=== PATIENT | female | born 1960 | race Caucasian/White ===

== ENCOUNTER 2019-05-01 15:04 | IRF | payer OTHER, SELFPAY ==
--- NOTE | ~2019-05-01 | XR_ITS ---
EXAMINATION: XR barium swallow modified EXAM DATE: 05/03/2019 10:23 INDICATION: Dysphagia. TECHNIQUE: Modified barium esophagram was performed by myself to administered fluoroscopy, in conjun ction with speech pathologist who administered barium in varying consistencies as per speech patholog ist documentation. This was recorded on tape. The DAP for this procedure was 0.5 Gycm2. FINDINGS: Oral stage: Adequate function. Pharyngeal phase: Adequate function. Laryngeal penetration: Trace, uncontrolled liquids, ejected. Aspiration: None. Laryngeal sensitivity: Present. IMPRESSION: Patient tolerated oral feedings in the upright position. Please refer to speech patholo gist findings and specific feeding recommendations. Reviewed, dictated and finalized at location A. IMPRESSION: Patient tolerated oral feedings in the upright position. Please r efer to speech pathologist findings and specific feeding recommendations.
--- NOTE | 2019-05-01 15:23 | ADMGEN ---
Arrived by ambulance, alert and orientated, VSS. This patient, Jo Broussard, was admitted to [facility] Room 224-01. Patient/family oriented to hospital policies and general routines including ID bracelet, bed and alarms, visiting hours, pain management, procedures, bathroom and other care routines, personal items, smoking policy, room service/diet, and visiting hours. Valuables list has been completed. Information on how to activate the Rapid Response Team has been discussed. Patient/Family are encouraged to report perceived risks to care and to ask questions if they do not understand what they are told or what they should do.
[2019-05-01 15:24] VITALS: BP 146/82; PULSE 61; RESP 18; TEMP 36.2; O2SAT 97
[2019-05-01 17:05] LABS: Glucose Point of Care 222 (65-105)
[2019-05-01] MEDS: metFORMIN HCL 500 MG TABLET 1000 MG PO (18:05)
[2019-05-01] MEDS: glipiZIDE 5 MG TABLET PO (18:05)
[2019-05-01] MEDS: APIXABAN 5 MG TABLET PO (18:06)
[2019-05-01] MEDS: ATORVASTATIN 40 MG TABLET PO (20:24)
[2019-05-01] MEDS: buPROPion HCL 75 MG TABLET PO (20:24)
[2019-05-01 20:54] LABS: Glucose Point of Care 209 (65-105)
[2019-05-01 22:00] VITALS: BP 113/55; PULSE 60; RESP 18; TEMP 36.3; O2SAT 95
[2019-05-02 05:04] LABS: Basophils Absolute Auto 0.1 K/mm3 (0.0-0.1); Basophils Percent Auto 0.6 % (0.2-1.2); Eosinophils Absolute Auto 0.3 K/mm3 (0-0.3); Eosinophils Percent Auto 3.5 % (0-4.4); Hematocrit 34.6 % (37.0-47.0); Hemoglobin 11.3 g/dL (12.0-15.0); Immature Granulocyte Absolute 0.03 K/mm3 (0.00-0.031); Immature Granulocyte Percent A 0.3 % (0-0.5); Lymphocytes Percent Auto 27.1 % (18.3-44.2); Mean Corpuscular HGB Conc 32.7 g/dl (32-36); Mean Corpuscular Hemoglobin 29.8 pg (26-34); Mean Corpuscular Volume 91.3 fl (80-100); Mean Platelet Volume 10.3 fl (7.4-10.4); Monocytes Absolute Auto 0.8 K/mm3 (0.1-0.6); Monocytes Percent Auto 8.6 % (2.6-8.5); Neutrophils Absolute Auto 5.3 K/mm3 (1.3-6.7); Neutrophils Percent Auto 59.9 % (45.5-73.1); Platelet Count Result 359 k/mm3 (150-375); Red Blood Count 3.79 M/mm3 (4.2-5.4); Red Cell Distribution Width 13.8 % (11.5-14.5); White Blood Count 8.9 K/mm3 (4.5-10.0)
[2019-05-02 05:11] LABS: Hemoglobin A1C 7.4 % (<5.7)
[2019-05-02 05:17] LABS: Blood Urea Nitrogen 18 mg/dL (7-17); Carbon Dioxide 26 mmol/L (22-30); Chloride 103 mmol/L (98-107); Cholesterol 110 mg/dL (0-200); Estimated Glomerular Filt Rate > 60; Glucose 126 mg/dL (65-105); HDL Direct 33 mg/dL; Potassium 3.7 mmol/L (3.4-5.0); Sodium 132 mmol/L (137-145); Triglycerides 98 mg/dL (<150)
[2019-05-02 05:28] LABS: LDL Cholesterol Direct 56 mg/dL
[2019-05-02 06:00] VITALS: BP 119/84; PULSE 63; RESP 18; TEMP 36.2; O2SAT 95
[2019-05-02] MEDS: glipiZIDE 5 MG TABLET PO ×2 (06:23→17:09)
[2019-05-02 06:30] LABS: Glucose Point of Care 151 (65-105)
[2019-05-02 08:00] VITALS: PULSE 63; RESP 18; O2SAT 95
[2019-05-02] MEDS: metFORMIN HCL 500 MG TABLET 1000 MG PO ×2 (09:17→17:09)
[2019-05-02] MEDS: ENALAPRIL MALEATE 10 MG TABLET 20 MG PO (09:17)
[2019-05-02] MEDS: buPROPion HCL 75 MG TABLET PO ×2 (09:17→20:04)
[2019-05-02] MEDS: NIFEdipine 30 MG TAB.ER.24 PO (09:17)
[2019-05-02] MEDS: FLUOXETINE HCL 20 MG CAP 40 MG PO (09:18)
[2019-05-02] MEDS: MULTIVITAMINS /C LUTEIN (CENTRUM SILVER) TABLET *BKC 1 TAB PO (09:18)
[2019-05-02] MEDS: APIXABAN 5 MG TABLET PO ×2 (09:18→17:09)
--- NOTE | 2019-05-02 10:00 | WPDREHABHP ---
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 The patient is a 51-year-old right-handed woman with a past medical history of hypertension, coronary artery disease, hyperlipidemia, prior myocardial infarct, obstructive sleep apnea, and type 2 diabetes mellitus who presented to a local hospital in [place] with left-sided weakness aphasia and right gaze deviation CT of the head was negative for hemorrhage. She received tPA and was transferred to [facility] for CT perfusion showed penumbra in the right hemisphere. Cerebral angiogram showed acute occlusion of the M1 segment of the right middle cerebral artery. Neurology was consulted and because of the evident large facial occlusion even post tPA the proceeded with mechanical thrombectomy. After successful thrombectomy the patient was placed on Eliquis and a statin. Post tPA CT showed a small amount of possible blood product versus contrast, but Neurology thought it is okay to start aspirin. Echo revealed ejection fraction of 55 to 65%. She was initially put on a adelia diet with nectar thickened liquids but has since been upgraded to a regular diet with thin liquids. Physical examination continues to reveal left hemiparesis, decreased gross motor control, decreased safety awareness and impaired balance. She will be discharged to us with on Eliquis Therapy was initiated at the acute care facility and the patient transferred to us from [facility] on May 01, 2019 FALLS OR SURGERIES: The patient has had major surgeries in the 100 days prior to admission. They had no falls in the past year. They had no falls with injury in the past year. 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 PAST SURGICAL HISTORY: Bladder repair, cardiac catheterization, cholecystectomy, colonoscopy, hysterectomy, sinus surgery SOCIAL HISTORY: the patient lives with her boyfriend and son in a 1 level home with 2 steps to enter. She was independent prior with no assistive device. Her by friend and son are available to us sister following rehab if needed. She reported no falls in the past year. She underwent a mechanical thrombectomy this admission. Current everyday smoker however planning to quit no alcohol or drug use. FAMILY HISTORY: Sister had aneurysm, mother with hypertension diabetes. Father with the mark Nina cancer. Maternal grandfather colon cancer. Paternal grandfather uterine/ ovarian cancer. Paternal grandfather diabetes. Maternal grand mother colon cancer. Maternal aunt breast cancer PRIOR LEVEL OF FUNCTION: Eating was INDEPENDENT Oral Care was INDEPENDENT Toileting Hygiene was INDEPENDENT Shower/Bathing was INDEPENDENT Upper Body Dressing was INDEPENDENT Lower Body Dressing was INDEPENDENT Donning/Rembert Footwear was INDEPENDENT Rolling Left and Right was INDEPENDENT Sit to Lying was INDEPENDENT Lying to Sitting was INDEPENDENT Sit to Stand was INDEPENDENT Bed to Chair Transfers was INDEPENDENT Toilet Transfers was INDEPENDENT Walking was INDEPENDENT >500 feet with NO DEVICE Wheelchair Mobility was NOT APPLICABLE PRIOR TO ADMISSION Stairs were INDEPENDENT CURRENT LEVEL OF FUNCTION: Eating was set upper clean up Oral Care was partial or moderate assistance Toileting Hygiene was partial moderate assistance Shower/Bathing was substantial or maximal assistance Upper Body Dressing was partial her moderate assistance Lower Body Dressing was substantial or maximal assistance D
[2019-05-02 12:13] LABS: Glucose Point of Care 215 (65-105)
[2019-05-02 13:56] VITALS: BMI 37.8
[2019-05-02 14:00] VITALS: BP 115/47; PULSE 63; RESP 18; TEMP 36.1; O2SAT 98
[2019-05-02 14:11] VITALS: BMI 37.8
[2019-05-02 17:07] LABS: Glucose Point of Care 107 (65-105)
[2019-05-02] MEDS: ATORVASTATIN 40 MG TABLET PO (20:05)
[2019-05-02 20:35] LABS: Glucose Point of Care 172 (65-105)
[2019-05-02 21:32] VITALS: BP 101/48; PULSE 59; RESP 16; TEMP 36.2; O2SAT 99
[2019-05-03 06:00] VITALS: BP 136/70; PULSE 62; RESP 16; TEMP 36; O2SAT 97
[2019-05-03 06:52] LABS: Glucose Point of Care 146 (65-105)
[2019-05-03] MEDS: glipiZIDE 5 MG TABLET PO ×2 (06:59→17:07)
[2019-05-03 08:00] VITALS: PULSE 62; RESP 16; O2SAT 97
[2019-05-03] MEDS: metFORMIN HCL 500 MG TABLET 1000 MG PO ×2 (08:24→17:07)
[2019-05-03] MEDS: APIXABAN 5 MG TABLET PO ×2 (08:24→17:07)
[2019-05-03] MEDS: NIFEdipine 30 MG TAB.ER.24 PO (08:25)
[2019-05-03] MEDS: buPROPion HCL 75 MG TABLET PO ×2 (08:25→20:14)
[2019-05-03] MEDS: ENALAPRIL MALEATE 10 MG TABLET 20 MG PO (08:25)
[2019-05-03] MEDS: MULTIVITAMINS /C LUTEIN (CENTRUM SILVER) TABLET *BKC 1 TAB PO (08:25)
[2019-05-03] MEDS: FLUOXETINE HCL 20 MG CAP 40 MG PO (08:25)
[2019-05-03 08:30] VITALS: TEMP 36
[2019-05-03] MEDS: ACETAMINOPHEN 325 MG TABLET 650 MG PO (08:30)
--- NOTE | 2019-05-03 10:46 | PCSTNOTE ---
Please refer to the Modified Barium Swallow Evaluation in the EMR.
--- NOTE | 2019-05-03 11:17 | WPDNEURORHBP ---
Subjective Date/time seen: 05/03/19 11:17 Interval history: this 59-year-old woman is here post a right middle cerebral artery stroke and status post thrombectomy of the occlusion of the middle cerebral artery as mentioned in my history and physical examination she did have the modified barium swallow this morning the results are pending the patient does have a left-sided weakness and making progress there are no neurological new symptoms particularly denies any headache nausea vomiting chest pain shortness of breath. Review of Systems Review of Systems: All systems reviewed & are unremarkable except as noted in HPI and below Functional Status Ambulation Ability Ability to Ambulate 10 Feet: Minimum Assistance X 1 Ability to Ambulate 50 Feet With 2 Turns: Minimum Assistance X 1 Ambulation Assistive Devices: Walker, Wheeled Exam Const: General: comfortable and no acute distress HENMT: General nose exam: Normal nares present Mouth: Yes moist mucous membranes Eyes: General: appearance normal, both eyes and all related structures Neck: Neck: supple and no JVD Resp: Effort & Inspection: normal respiratory effort Auscultation: clear to auscultation bilaterally Cardio: Rate: regular rate Rhythm: regular rhythm GI: GI Palp: Yes Soft to palpation Auscultation: normal bowel sounds Skin: General skin exam: normal color and no rashes or lesions noted Neuro: Other: Patient does have a mild dysarthria med modified barium swallow spending moderately severe left-sided hemiparesis needing assistance all the activities of daily living no regression no new signs Extrem: General: normal to inspection Objective Data Vital Signs Vital Signs: Vital Signs - 24 hr 05/02/19 14:00 05/02/19 21:32 05/03/19 06:00 Temperature 36.1 C L 36.2 C L 36.0 C L Pulse Rate 63 59 L 62 Respiratory Rate 18 16 16 Blood Pressure 115/47 L 101/48 L 136/70 Pulse Oximetry 98 99 97 05/03/19 08:00 05/03/19 08:30 Temperature 36.0 C L Pulse Rate 62 Respiratory Rate 16 Blood Pressure Pulse Oximetry 97 Intake/Output Intake/Output: Intake & Output 04/30/19 05/01/19 05/02/19 05/03/19 23:59 23:59 23:59 23:59 Intake Total 120 760 120 Balance 120 760 120 Meds/Results Medications: Active Medications Generic Name Dose Route Start Last Admin Trade Name Freq PRN Reason Stop Dose Admin Acetaminophen 650 mg 05/01/19 16:11 05/03/19 08:30 Tylenol Tablet PO 650 mg Q4H PRN Administration Pain (Scale Score 1-3) Apixaban 5 mg 05/01/19 17:00 05/03/19 08:24 Eliquis PO 5 mg BID ARUN Administration Atorvastatin Calcium 40 mg 05/01/19 21:00 05/02/19 20:05 Lipitor PO 40 mg HS ARUN Administration Bupropion HCl 75 mg 05/01/19 21:00 05/03/19 08:25 Wellbutrin PO 75 mg Q12HR ARUN Administration Dextrose 12.5 gm 05/01/19 18:10 Dextrose 50% Syringe IV PUSH PRN PRN Hypoglycemia Protocol Enalapril Maleate 20 mg 05/02/19 09:00 05/03/19 08:25 Vasotec PO 20 mg QAM ARUN Administration Fluoxetine HCl 40 mg 05/02/19 09:00 05/03/19 08:25 Prozac PO 40 mg DAILY ARUN Administration Glipizide 5 mg 05/01/19 16:30 05/03/19 06:59 Glucotrol PO 5 mg BIDAC ARUN Administration Glucagon 1 mg 05/01/19 18:10 Glucagon For Inj IM PRN PRN Hypoglycemia Protocol Glucose 15 gm 05/01/19 18:10 Glutose 15 PO PRN PRN Hypoglycemia Protocol Dextrose 1,000 mls @ 100 mls/hr 05/01/19 18:10 Dextrose 5% 1,000 Ml IVPB PRN PRN Hypoglycemia Protocol Metformin HCl 1,000 mg 05/01/19 17:00 05/03/19 08:24 Glucophage PO 1,000 mg BIDWM ARUN Administration Multivitamins/Minerals 1 tab 05/02/19 09:00 05/03/19 08:25 Centrum Silver PO 1 tab QAM ARUN Administration Nifedipine 30 mg 05/02/19 09:00 05/03/19 08:25 Procardia Xl PO 30 mg DAILY ARUN Administration Sitagliptin Phosphate 100 mg 05/02/19
[2019-05-03 11:39] LABS: Glucose Point of Care 162 (65-105)
[2019-05-03 14:00] VITALS: BP 142/56; PULSE 577; RESP 18; TEMP 36; O2SAT 96
--- NOTE | 2019-05-03 16:47 | RPD ---
INDIVIDUALIZED PLAN OF CARE FOR Jo Broussard Brief Synthesis of Pre-Admission Screen, Post-Admission Evaluation and Therapy Evaluations: The patient presents to rehab with an acute ischemic right MCA stroke with penumbra right hemisphere. Comorbidities include status post tPA administration, status post thrombectomy, hypertension, dysphagia, diabetes mellitus with hyperglycemia, coronary artery disease, depression, sleep apnea, and left hemiparesis. Deficits include:ADLs, Balance, Endurance, Family Training/Education, Mobility, Pain Management, ROM, Safety, Strength, Swallowing, and Transfers Certified Surgical Technologist/Case Management for: Discharge Planning and Patient/Family Counseling Physical Therapy: 5 days per week for 90 minutes. Treatments may include: Therapeutic Exercise, Gait Training, Neuromuscular Re-education, Transfer Training, Community Reintegration, Bed Mobility, Patient/Family Education, Wheelchair Mobility Group Therapy/Concurrent Therapy Rationales: -Improve attention span during functional activities in a distracted environment. -Enhance problem solving and/or adequate judgment skills during functional activities in a distracted environment. -Promote increased safety awareness in a distracted environment to reduce fall risk with functional tasks, transfers, and ambulation to allow a more safe, self-sufficient return to the home environment. -Improve dynamic balance skills to promote safety and independence with functional activities in a distracted environment for maximum gain. Occupational Therapy: 5 days per week for 90 minutes. Treatments may include: Therapeutic Exercise, Therapeutic Activity, Cognitive Training, Self-Care Transfer Training, Community Reintegration, Home Management, Patient/Family Education, Wheelchair Mobility Training, Energy Conservation Training Group Therapy/Concurrent Therapy Rationales: -Allow therapist to observe and teach generalization and carry-over of skills learned in individual therapy. -Enhance problem solving and sequencing skills during therapeutic activities in a distracted environment. -Promote increased safety awareness in a realistic setting to reduce fall risk with functional tasks due to visual and verbal distractions. -Increase functional level with ADLs, ADL transfers and use of adaptive equipment through therapeutic activities with others while promoting safety to allow a more safe, self-sufficient return home. Medical Prognosis: Good Anticipated Length of Stay: 10 days Rehab Goals: Eating Goal: 06-Independent Oral Hygiene Goal: 06-Independent Toileting Hygiene Goal: 06-Independent Shower/Bathe Self Goal: 04-Supervision or Touching Assistance Upper Body Dressing Goal: 06-Independent Lower Body Dressing Goal: 06-Independent Putting On/Taking Off Footwear Goal: 06-Independent Rolling Left and Right Goal: 06-Independent Sit to Lying Goal: 06-Independent Lying to Sitting on Side of Bed Goal: 06-Independent Sit to Stand Goal: 06-Independent Chair/Vik-gi-Fnard Transfer Goal: 06-Independent Toilet Transfer Goal: 06-Independent Car Transfer Goal: 06-Independent Walk 10' Goal: 06-Independent Walk 50' with Two Turns Goal: 06-Independent Walk 150' Goal: 06-Independent Walk 10' on Uneven Surface Goal: 06-Independent 1 Step (Curb) Goal: 06-Independent 4 Steps Goal: 06-Independent 12 Steps Goal Score: 06-Independent Picking Up Object Goal: 06-Independent Wheel 50' with Two Turns Score: Wheel 150' Goal: Anticipated discharge destination: Home
[2019-05-03 16:58] LABS: Glucose Point of Care 128 (65-105)
[2019-05-03] MEDS: ATORVASTATIN 40 MG TABLET PO (20:15)
[2019-05-03 20:53] LABS: Glucose Point of Care 95 (65-105)
[2019-05-03 22:00] VITALS: BP 107/50; PULSE 58; RESP 18; TEMP 36.6; O2SAT 95
[2019-05-04 06:00] VITALS: BP 134/69; PULSE 82; RESP 20; TEMP 36.5; O2SAT 100
[2019-05-04] MEDS: glipiZIDE 5 MG TABLET PO (06:51)
[2019-05-04 07:09] LABS: Glucose Point of Care 160 (65-105)
[2019-05-04 10:45] VITALS: BP 93/71; PULSE 97
[2019-05-04] MEDS: FLUOXETINE HCL 20 MG CAP 40 MG PO (10:49)
[2019-05-04] MEDS: APIXABAN 5 MG TABLET PO ×2 (10:49→21:07)
[2019-05-04] MEDS: MULTIVITAMINS /C LUTEIN (CENTRUM SILVER) TABLET *BKC 1 TAB PO (10:49)
[2019-05-04] MEDS: buPROPion HCL 75 MG TABLET PO ×2 (10:50→20:27)
[2019-05-04] MEDS: metFORMIN HCL 500 MG TABLET 1000 MG PO (10:50)
[2019-05-04 10:57] VITALS: BP 102/61; PULSE 66
[2019-05-04 12:05] LABS: Glucose Point of Care 163 (65-105)
--- NOTE | 2019-05-04 12:16 | WPDNEURORHBP ---
Subjective Date/time seen: 05/04/19 12:16 Interval history: this is a 59-year-old woman is here after having had tPA followed by right middle cerebral artery focal occlusion by thrombectomy with the left-sided hemiparesis she is doing fairly well quite motivated and working with therapy except complaining of fatigue and tiredness which is not unusual in the stroke patient's Patient denies any headache nausea vomiting chest pain shortness of breath fever chills or sore throat Review of Systems Review of Systems: All systems reviewed & are unremarkable except as noted in HPI and below Functional Status Ambulation Ability Ability to Ambulate 10 Feet: Contact Guard Ability to Ambulate 50 Feet With 2 Turns: Contact Guard Ability to Ambulate 150 Feet: Contact Guard Ambulation Assistive Devices: Walker, Wheeled Exam Const: General: comfortable and no acute distress HENMT: General nose exam: Normal nares present Mouth: Yes moist mucous membranes Eyes: General: appearance normal, both eyes and all related structures Neck: Neck: supple and no JVD Resp: Effort & Inspection: normal respiratory effort Auscultation: clear to auscultation bilaterally Cardio: Rate: regular rate Rhythm: regular rhythm GI: GI Palp: Yes Soft to palpation Auscultation: normal bowel sounds Skin: General skin exam: normal color and no rashes or lesions noted Neuro: Other: patient is awake alert double oriented times person person has normal speech language functions left-sided facial weakness left-sided hemiparesis needing assistance all the activities of daily living Extrem: General: normal to inspection Psych: Mental Status: mental status grossly normal Objective Data Vital Signs Vital Signs: Vital Signs - 24 hr 05/03/19 14:00 05/03/19 22:00 05/04/19 06:00 Temperature 36.0 C L 36.6 C 36.5 C Pulse Rate 577 H 58 L 82 Respiratory Rate 18 18 20 Blood Pressure 142/56 H 107/50 L 134/69 Pulse Oximetry 96 95 100 05/04/19 10:45 05/04/19 10:57 Temperature Pulse Rate 97 66 Respiratory Rate Blood Pressure 93/71 L 102/61 Pulse Oximetry Intake/Output Intake/Output: Intake & Output 05/01/19 05/02/19 05/03/19 05/04/19 23:59 23:59 23:59 23:59 Intake Total 120 760 360 120 Balance 120 760 360 120 Meds/Results Medications: Active Medications Generic Name Dose Route Start Last Admin Trade Name Freq PRN Reason Stop Dose Admin Acetaminophen 650 mg 05/01/19 16:11 05/03/19 08:30 Tylenol Tablet PO 650 mg Q4H PRN Administration Pain (Scale Score 1-3) Apixaban 5 mg 05/01/19 17:00 05/04/19 10:49 Eliquis PO 5 mg BID ARUN Administration Atorvastatin Calcium 40 mg 05/01/19 21:00 05/03/19 20:15 Lipitor PO 40 mg HS ARUN Administration Bupropion HCl 75 mg 05/01/19 21:00 05/04/19 10:50 Wellbutrin PO 75 mg Q12HR ARUN Administration Dextrose 12.5 gm 05/01/19 18:10 Dextrose 50% Syringe IV PUSH PRN PRN Hypoglycemia Protocol Enalapril Maleate 20 mg 05/02/19 09:00 05/04/19 11:05 Vasotec PO Not Given QAM ARUN Fluoxetine HCl 40 mg 05/02/19 09:00 05/04/19 10:49 Prozac PO 40 mg DAILY ARUN Administration Glipizide 5 mg 05/01/19 16:30 05/04/19 06:51 Glucotrol PO 5 mg BIDAC ARUN Administration Glucagon 1 mg 05/01/19 18:10 Glucagon For Inj IM PRN PRN Hypoglycemia Protocol Glucose 15 gm 05/01/19 18:10 Glutose 15 PO PRN PRN Hypoglycemia Protocol Dextrose 1,000 mls @ 100 mls/hr 05/01/19 18:10 Dextrose 5% 1,000 Ml IVPB PRN PRN Hypoglycemia Protocol Metformin HCl 1,000 mg 05/01/19 17:00 05/04/19 10:50 Glucophage PO 1,000 mg BIDWM ARUN Administration Multivitamins/Minerals 1 tab 05/02/19 09:00 05/04/19 10:49 Centrum Silver PO 1 tab QAM ARUN Administration Nifedipine 30 mg 05/02/19 09:00 05/04/19 11:05 Procardia Xl PO Not Given DAILY [facility] Sitaglipti
[2019-05-04 14:00] VITALS: BP 113/43; PULSE 60; RESP 18; TEMP 36.7; O2SAT 97
[2019-05-04 16:37] LABS: Glucose Point of Care 95 (65-105)
[2019-05-04] MEDS: ATORVASTATIN 40 MG TABLET PO (20:26)
--- NOTE | 2019-05-04 21:07 | PC.NURSE ---
Held glypizide and glucophage at supper, not eating well, blood sugar 94, Dr. Cris anton.
[2019-05-04 22:00] VITALS: BP 112/64; PULSE 59; RESP 20; TEMP 36.7; O2SAT 92
[2019-05-04 22:25] LABS: Glucose Point of Care 111 (65-105)
[2019-05-05 06:00] VITALS: BP 122/64; PULSE 64; RESP 20; TEMP 36.5; O2SAT 93
[2019-05-05] MEDS: glipiZIDE 5 MG TABLET PO ×2 (06:24→17:11)
[2019-05-05 06:31] LABS: Glucose Point of Care 121 (65-105)
[2019-05-05 08:50] VITALS: BP 129/70; PULSE 69
[2019-05-05] MEDS: metFORMIN HCL 500 MG TABLET 1000 MG PO ×2 (08:57→17:12)
[2019-05-05] MEDS: buPROPion HCL 75 MG TABLET PO ×2 (08:57→20:47)
[2019-05-05] MEDS: APIXABAN 5 MG TABLET PO ×2 (08:57→17:11)
[2019-05-05] MEDS: NIFEdipine 30 MG TAB.ER.24 PO (08:57)
[2019-05-05] MEDS: MULTIVITAMINS /C LUTEIN (CENTRUM SILVER) TABLET *BKC 1 TAB PO (08:57)
[2019-05-05] MEDS: ENALAPRIL MALEATE 10 MG TABLET 20 MG PO (08:57)
[2019-05-05] MEDS: FLUOXETINE HCL 20 MG CAP 40 MG PO (08:57)
[2019-05-05 12:09] LABS: Glucose Point of Care 144 (65-105)
[2019-05-05 14:00] VITALS: BP 112/59; PULSE 60; RESP 18; TEMP 35.6; O2SAT 96
--- NOTE | 2019-05-05 15:34 | WPDNEURORHBP ---
Subjective Date/time seen: 05/05/19 15:34 Interval history: this is a 59-year-old woman who is here after having had stroke which has left her with left-sided hemiparesis from which she is improving she does not have any new complaints referring to central nervous system likewise she does not have any headache nausea vomiting chest pain shortness of breath fever chills or sore throat Review of Systems Review of Systems: All systems reviewed & are unremarkable except as noted in HPI and below Functional Status Ambulation Ability Ability to Ambulate 10 Feet: Contact Guard Ability to Ambulate 50 Feet With 2 Turns: Contact Guard Ability to Ambulate 150 Feet: Contact Guard Ambulation Assistive Devices: Walker, Wheeled Exam Const: General: comfortable and no acute distress HENMT: General nose exam: Normal nares present Mouth: Yes moist mucous membranes Eyes: General: appearance normal, both eyes and all related structures Neck: Neck: supple and no JVD Resp: Effort & Inspection: normal respiratory effort Auscultation: clear to auscultation bilaterally Cardio: Rate: regular rate Rhythm: regular rhythm GI: GI Palp: Yes Soft to palpation Auscultation: normal bowel sounds Skin: General skin exam: normal color and no rashes or lesions noted Neuro: Other: patient is awake alert oriented times person person has a normal speech infection left-sided facial weakness and left-sided hemiparesis for which she is improving and doing much better Extrem: General: normal to inspection Psych: Mental Status: mental status grossly normal Objective Data Vital Signs Vital Signs: Vital Signs - 24 hr 05/04/19 22:00 05/05/19 06:00 05/05/19 08:50 Temperature 36.7 C 36.5 C Pulse Rate 59 L 64 69 Respiratory Rate 20 20 Blood Pressure 112/64 122/64 129/70 Pulse Oximetry 92 93 Intake/Output Intake/Output: Intake & Output 05/02/19 05/03/19 05/04/19 05/05/19 23:59 23:59 23:59 23:59 Intake Total 760 360 360 480 Balance 760 360 360 480 Meds/Results Medications: Active Medications Generic Name Dose Route Start Last Admin Trade Name Freq PRN Reason Stop Dose Admin Acetaminophen 650 mg 05/01/19 16:11 05/03/19 08:30 Tylenol Tablet PO 650 mg Q4H PRN Administration Pain (Scale Score 1-3) Apixaban 5 mg 05/01/19 17:00 05/05/19 08:57 Eliquis PO 5 mg BID ARUN Administration Atorvastatin Calcium 40 mg 05/01/19 21:00 05/04/19 20:26 Lipitor PO 40 mg HS ARUN Administration Bupropion HCl 75 mg 05/01/19 21:00 05/05/19 08:57 Wellbutrin PO 75 mg Q12HR ARUN Administration Dextrose 12.5 gm 05/01/19 18:10 Dextrose 50% Syringe IV PUSH PRN PRN Hypoglycemia Protocol Enalapril Maleate 20 mg 05/02/19 09:00 05/05/19 08:57 Vasotec PO 20 mg QAM ARUN Administration Fluoxetine HCl 40 mg 05/02/19 09:00 05/05/19 08:57 Prozac PO 40 mg DAILY ARUN Administration Glipizide 5 mg 05/01/19 16:30 05/05/19 06:24 Glucotrol PO 5 mg BIDAC ARUN Administration Glucagon 1 mg 05/01/19 18:10 Glucagon For Inj IM PRN PRN Hypoglycemia Protocol Glucose 15 gm 05/01/19 18:10 Glutose 15 PO PRN PRN Hypoglycemia Protocol Dextrose 1,000 mls @ 100 mls/hr 05/01/19 18:10 Dextrose 5% 1,000 Ml IVPB PRN PRN Hypoglycemia Protocol Metformin HCl 1,000 mg 05/01/19 17:00 05/05/19 08:57 Glucophage PO 1,000 mg BIDWM ARUN Administration Multivitamins/Minerals 1 tab 05/02/19 09:00 05/05/19 08:57 Centrum Silver PO 1 tab QAM ARUN Administration Nifedipine 30 mg 05/02/19 09:00 05/05/19 08:57 Procardia Xl PO 30 mg DAILY ARUN Administration Sitagliptin Phosphate 100 mg 05/02/19 08:00 05/05/19 08:57 Januvia PO 100 mg DAILY@0800 ARUN Administration Radiology Results: ITS Impressions Modified Barium Swallow 05/03/19 10:46 IMPRESSION: Patient tolerated oral feedings in the
[2019-05-05 17:13] LABS: Glucose Point of Care 115 (65-105)
[2019-05-05] MEDS: LOPERAMIDE HCL 2 MG CAPSULE PO (18:04)
[2019-05-05] MEDS: ATORVASTATIN 40 MG TABLET PO (20:47)
[2019-05-05 21:12] LABS: Glucose Point of Care 98 (65-105)
[2019-05-05 22:00] VITALS: BP 108/55; PULSE 54; RESP 18; TEMP 35.9; O2SAT 98
[2019-05-06] MEDS: glipiZIDE 5 MG TABLET PO ×2 (05:49→17:21)
[2019-05-06 06:00] VITALS: BP 124/42; PULSE 60; RESP 18; TEMP 35.8; O2SAT 98
[2019-05-06 06:57] LABS: Glucose Point of Care 105 (65-105)
[2019-05-06] MEDS: ENALAPRIL MALEATE 10 MG TABLET 20 MG PO (08:54)
[2019-05-06] MEDS: buPROPion HCL 75 MG TABLET PO ×2 (08:54→20:36)
[2019-05-06] MEDS: metFORMIN HCL 500 MG TABLET 1000 MG PO ×2 (08:54→17:21)
[2019-05-06] MEDS: APIXABAN 5 MG TABLET PO ×2 (08:54→17:21)
[2019-05-06] MEDS: FLUOXETINE HCL 20 MG CAP 40 MG PO (08:55)
[2019-05-06] MEDS: NIFEdipine 30 MG TAB.ER.24 PO (08:55)
[2019-05-06] MEDS: MULTIVITAMINS /C LUTEIN (CENTRUM SILVER) TABLET *BKC 1 TAB PO (08:55)
[2019-05-06 11:50] LABS: Glucose Point of Care 100 (65-105)
[2019-05-06 14:00] VITALS: BP 112/52; PULSE 63; RESP 18; TEMP 35.5; O2SAT 99
--- NOTE | 2019-05-06 15:46 | WPDNEURORHBP ---
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 from which she is improving fairly well denies any headache nausea vomiting chest pain or shortness of breath fever chills or sore throat Review of Systems Review of Systems: All systems reviewed & are unremarkable except as noted in HPI and below Functional Status Ambulation Ability Ability to Ambulate 10 Feet: Standby Assistance Ability to Ambulate 50 Feet With 2 Turns: Standby Assistance Ability to Ambulate 150 Feet: Contact Guard Ambulation Assistive Devices: Walker, Wheeled Exam Const: General: comfortable and no acute distress HENMT: General nose exam: Normal nares present Mouth: Yes moist mucous membranes Eyes: General: appearance normal, both eyes and all related structures Neck: Neck: supple and no JVD Resp: Effort & Inspection: normal respiratory effort Auscultation: clear to auscultation bilaterally Cardio: Rate: regular rate Rhythm: regular rhythm GI: GI Palp: Yes Soft to palpation Auscultation: normal bowel sounds Skin: General skin exam: normal color and no rashes or lesions noted Neuro: Other: this is a 59-year-old woman who is recuperating here after having had a stroke with left-sided hemiparesis she is doing fairly well and improving overall and engage in therapy and getting better Extrem: General: normal to inspection Psych: Mental Status: mental status grossly normal Objective Data Vital Signs Vital Signs: Vital Signs - 24 hr 05/05/19 22:00 05/06/19 06:00 05/06/19 14:00 Temperature 35.9 C L 35.8 C L 35.5 C L Pulse Rate 54 L 60 63 Respiratory Rate 18 18 18 Blood Pressure 108/55 L 124/42 L 112/52 L Pulse Oximetry 98 98 99 Intake/Output Intake/Output: Intake & Output 05/03/19 05/04/19 05/05/19 05/06/19 23:59 23:59 23:59 23:59 Intake Total 360 360 720 480 Balance 360 360 720 480 Meds/Results Medications: Active Medications Generic Name Dose Route Start Last Admin Trade Name Freq PRN Reason Stop Dose Admin Acetaminophen 650 mg 05/01/19 16:11 05/03/19 08:30 Tylenol Tablet PO 650 mg Q4H PRN Administration Pain (Scale Score 1-3) Apixaban 5 mg 05/01/19 17:00 05/06/19 08:54 Eliquis PO 5 mg BID ARUN Administration Atorvastatin Calcium 40 mg 05/01/19 21:00 05/05/19 20:47 Lipitor PO 40 mg HS ARUN Administration Bupropion HCl 75 mg 05/01/19 21:00 05/06/19 08:54 Wellbutrin PO 75 mg Q12HR ARUN Administration Dextrose 12.5 gm 05/01/19 18:10 Dextrose 50% Syringe IV PUSH PRN PRN Hypoglycemia Protocol Enalapril Maleate 20 mg 05/02/19 09:00 05/06/19 08:54 Vasotec PO 20 mg QAM ARUN Administration Fluoxetine HCl 40 mg 05/02/19 09:00 05/06/19 08:55 Prozac PO 40 mg DAILY ARUN Administration Glipizide 5 mg 05/01/19 16:30 05/06/19 05:49 Glucotrol PO 5 mg BIDAC ARUN Administration Glucagon 1 mg 05/01/19 18:10 Glucagon For Inj IM PRN PRN Hypoglycemia Protocol Glucose 15 gm 05/01/19 18:10 Glutose 15 PO PRN PRN Hypoglycemia Protocol Dextrose 1,000 mls @ 100 mls/hr 05/01/19 18:10 Dextrose 5% 1,000 Ml IVPB PRN PRN Hypoglycemia Protocol Loperamide HCl 2 mg 05/05/19 16:58 05/05/19 18:04 Loperamide Hcl PO 2 mg PRN PRN Administration Diarrhea Metformin HCl 1,000 mg 05/01/19 17:00 05/06/19 08:54 Glucophage PO 1,000 mg BIDWM ARUN Administration Multivitamins/Minerals 1 tab 05/02/19 09:00 05/06/19 08:55 Centrum Silver PO 1 tab QAM ARUN Administration Nifedipine 30 mg 05/02/19 09:00 05/06/19 08:55 Procardia Xl PO 30 mg DAILY ARUN Administration Sitagliptin Phosphate 100 mg 05/02/19 08:00 05/06/19 08:54 Januvia PO 100 mg DAILY@0800 [facility] Administratio
[2019-05-06 16:58] LABS: Glucose Point of Care 111 (65-105)
[2019-05-06] MEDS: ATORVASTATIN 40 MG TABLET PO (20:36)
[2019-05-06 20:58] LABS: Glucose Point of Care 97 (65-105)
[2019-05-06 21:21] VITALS: BP 110/60; PULSE 60; RESP 16; TEMP 36.3; O2SAT 97
[2019-05-07 06:00] VITALS: BP 124/59; PULSE 64; RESP 16; TEMP 36.2; O2SAT 98
[2019-05-07] MEDS: glipiZIDE 5 MG TABLET PO ×2 (06:54→17:37)
[2019-05-07 07:02] LABS: Glucose Point of Care 68 (65-105)
[2019-05-07 09:05] VITALS: BP 120/58; PULSE 69
[2019-05-07] MEDS: ENALAPRIL MALEATE 10 MG TABLET 20 MG PO (09:06)
[2019-05-07] MEDS: metFORMIN HCL 500 MG TABLET 1000 MG PO ×2 (09:06→17:37)
[2019-05-07] MEDS: APIXABAN 5 MG TABLET PO ×2 (09:07→17:37)
[2019-05-07] MEDS: MULTIVITAMINS /C LUTEIN (CENTRUM SILVER) TABLET *BKC 1 TAB PO (09:07)
[2019-05-07] MEDS: FLUOXETINE HCL 20 MG CAP 40 MG PO (09:07)
[2019-05-07] MEDS: buPROPion HCL 75 MG TABLET PO ×2 (09:07→20:22)
[2019-05-07] MEDS: NIFEdipine 30 MG TAB.ER.24 PO (09:08)
--- NOTE | 2019-05-07 11:38 | WPDNEURORHBP ---
Subjective Date/time seen: left cassandra paretic and [id number]/23/20 11:38 Functional Status Ambulation Ability Ability to Ambulate 10 Feet: Standby Assistance Ability to Ambulate 50 Feet With 2 Turns: Standby Assistance Ability to Ambulate 150 Feet: Standby Assistance Ambulation Assistive Devices: Walker, Wheeled Exam Const: General: no acute distress Eyes: General: appearance normal, both eyes and all related structures Alignment and Position: alignment normal Eyelids: eyelids normal Sclera: sclerae normal Cornea: corneas normal Pupils: Equal, round and reactive pupils present EOM: EOMs intact bilaterally Direct Ophthalmoscopy: normal light reflex Neck: Neck: full ROM and no lymphadenopathy Resp: Effort & Inspection: normal respiratory effort and able to speak in complete sentences Auscultation: clear to auscultation bilaterally Cardio: Rate: regular rate Rhythm: regular rhythm GI: Auscultation: normal bowel sounds Skin: General skin exam: no rashes or lesions noted Neuro: General: patient oriented x3 and moves all extremities Cranial nerves: Yes Equal, round and reactive pupils present, Yes Nystagmus not present, Yes Midline tongue present, Yes Symmetric palate elevation present, Yes Normal hearing present, Yes Ability to bilaterally rotate head present and Yes Ability to bilaterally elevate shoulders present Speech: normal speech Gait exam (Neuro): Other gait observations present (left hemiparetic) Sensory Exam: Sensory deficit (Neuro) (distally) Deep tendon reflexes (DTR's): Right triceps reflex intensity grade: 1+, Left triceps reflex intensity grade: 2+, Rt Biceps (C5, C6): 1+, Left biceps reflex intensity grade: 2+, Right brachioradialis reflex intensity grade: 1+, Left brachioradialis reflex intensity grade: 2+, Right patellar reflex intensity grade: 1+, Left patellar reflex intensity grade: 2+ and Left ankle reflex intensity grade: 2+ Plantar Reflex Responses: downgoing: right and upgoing (positive Babinski): left Psych: Appearance: grossly normal Objective Data Vital Signs Vital Signs: Vital Signs - 24 hr 05/06/19 14:00 05/06/19 21:21 05/07/19 06:00 Temperature 35.5 C L 36.3 C L 36.2 C L Pulse Rate 63 60 64 Respiratory Rate 18 16 16 Blood Pressure 112/52 L 110/60 124/59 L Pulse Oximetry 99 97 98 05/07/19 09:05 Temperature Pulse Rate 69 Respiratory Rate Blood Pressure 120/58 L Pulse Oximetry Intake/Output Intake/Output: Intake & Output 05/04/19 05/05/19 05/06/19 05/07/19 23:59 23:59 23:59 23:59 Intake Total 360 720 840 Balance 360 720 840 Meds/Results Medications: Active Medications Generic Name Dose Route Start Last Admin Trade Name Freq PRN Reason Stop Dose Admin Acetaminophen 650 mg 05/01/19 16:11 05/03/19 08:30 Tylenol Tablet PO 650 mg Q4H PRN Administration Pain (Scale Score 1-3) Apixaban 5 mg 05/01/19 17:00 05/07/19 09:07 Eliquis PO 5 mg BID ARUN Administration Atorvastatin Calcium 40 mg 05/01/19 21:00 05/06/19 20:36 Lipitor PO 40 mg HS ARUN Administration Bupropion HCl 75 mg 05/01/19 21:00 05/07/19 09:07 Wellbutrin PO 75 mg Q12HR ARUN Administration Dextrose 12.5 gm 05/01/19 18:10 Dextrose 50% Syringe IV PUSH PRN PRN Hypoglycemia Protocol Enalapril Maleate 20 mg 05/02/19 09:00 05/07/19 09:06 Vasotec PO 20 mg QAM ARUN Administration Fluoxetine HCl 40 mg 05/02/19 09:00 05/07/19 09:07 Prozac PO 40 mg DAILY ARUN Administration Glipizide 5 mg 05/01/19 16:30 05/07/19 06:54 Glucotrol PO 5 mg BIDAC ARUN Administration Glucagon 1 mg 05/01/19 18:10 Glucagon For Inj IM PRN PRN Hypoglycemia Protocol Glucose 15 gm 05/01/19 18:10 Glutose 15 PO PRN PRN Hypoglycemia Protocol Dextrose 1,000 mls @ 100 mls/hr 05/01/19 18:10 Dextrose 5% 1,000 Ml IVPB PRN PRN Hypoglycemia Protocol Loperamide HCl 2 mg 04/15
--- NOTE | 2019-05-07 12:06 | PCDIET ---
Nutrition Follow-Up Complete: Nutrition Diagnosis: Decreased saturated fat/cholesterol needs related to cardiovascular disease as evidenced by CVA. Nutrition Goal: Patient to consume 75% of meals or greater Goal not met. Average intake since last review is ~65% of recorded meals. Diet is diabetic which is appropriate until intakes improve; at that time, would suggest adding heart healthy component. In mean time, suggest adding Glucerna Shake (220kcal, 10g protein) once daily to supplement intakes. Last recorded weight is 100 kg. Recommend obtaining new weight. Bowel Motility: +BM today. Labs Reviewed: Glu (68) Meds Noted: Glucotrol, Glucophage, Januvia, Centrum Silver Additional Notes: No documented pressure sores. Nutrition Monitoring and Evaluation: Follow up in 5 days.
[2019-05-07 12:08] LABS: Glucose Point of Care 116 (65-105)
[2019-05-07 14:00] VITALS: BP 103/66; PULSE 69; RESP 20; TEMP 36.2; O2SAT 98
[2019-05-07 17:12] LABS: Glucose Point of Care 98 (65-105)
[2019-05-07 20:10] LABS: Glucose Point of Care 151 (65-105)
[2019-05-07] MEDS: ATORVASTATIN 40 MG TABLET PO (20:22)
[2019-05-07 22:00] VITALS: BP 110/54; PULSE 60; RESP 18; TEMP 36.1; O2SAT 95
[2019-05-08 06:00] VITALS: BP 114/59; PULSE 58; RESP 18; TEMP 36.2; O2SAT 96
[2019-05-08 06:40] LABS: Glucose Point of Care 75 (65-105)
--- NOTE | 2019-05-08 08:08 | PCPTNOTE ---
Jo Broussard was evaluated for a wheeled walker on 05/08/2019 by this physical therapist resident programs assistant. The wheeled walker will resolve patient's mobility limitations and will be used for ADL's within the home. The patient can safely use the wheeled walker. ?The wheeled walker will resolve the patient?s mobility deficits, including decreased strength on left side and decreased endurance.
[2019-05-08] MEDS: FLUOXETINE HCL 20 MG CAP 40 MG PO (08:16)
[2019-05-08] MEDS: glipiZIDE 5 MG TABLET PO ×2 (08:16→17:05)
[2019-05-08] MEDS: ENALAPRIL MALEATE 10 MG TABLET 20 MG PO (08:17)
[2019-05-08] MEDS: MULTIVITAMINS /C LUTEIN (CENTRUM SILVER) TABLET *BKC 1 TAB PO (08:17)
[2019-05-08] MEDS: buPROPion HCL 75 MG TABLET PO ×2 (08:17→20:06)
[2019-05-08] MEDS: NIFEdipine 30 MG TAB.ER.24 PO (08:17)
[2019-05-08] MEDS: metFORMIN HCL 500 MG TABLET 1000 MG PO ×2 (08:17→17:05)
[2019-05-08] MEDS: APIXABAN 5 MG TABLET PO ×2 (08:17→17:05)
--- NOTE | 2019-05-08 10:52 | WPDNEURORHBP ---
Subjective Date/time seen: 05/08/19 10:52 Interval history: this 59-year-old woman is here after having had stroke which has left her with the left-sided hemiparesis from which she is improving quite a bit she has started walking with the wheel walker and 75 feet and quite happy with the improvement denies any worsening for sure no headache nausea vomiting chest pain shortness of breath fever chills or sore throat Review of Systems Review of Systems: All systems reviewed & are unremarkable except as noted in HPI and below Functional Status Ambulation Ability Ability to Ambulate 10 Feet: Standby Assistance Ability to Ambulate 50 Feet With 2 Turns: Standby Assistance Ability to Ambulate 150 Feet: Standby Assistance Ambulation Assistive Devices: Walker, Wheeled Exam Const: General: comfortable and no acute distress HENMT: General nose exam: Normal nares present Mouth: Yes moist mucous membranes Eyes: General: appearance normal, both eyes and all related structures Neck: Neck: supple and no JVD Resp: Effort & Inspection: normal respiratory effort Auscultation: clear to auscultation bilaterally Cardio: Rate: regular rate Rhythm: regular rhythm GI: GI Palp: Yes Soft to palpation Auscultation: normal bowel sounds Skin: General skin exam: normal color and no rashes or lesions noted Neuro: Other: patient is awake alert were going to time place and person is speech and language functions are normal cranial examination shows left-sided facial weakness motor examination shows left-sided hemiparesis however which is clearly improving and she is doing very well overall significant improvement Extrem: General: normal to inspection Psych: Mental Status: mental status grossly normal Objective Data Vital Signs Vital Signs: Vital Signs - 24 hr 05/07/19 14:00 05/07/19 22:00 05/08/19 06:00 Temperature 36.2 C L 36.1 C L 36.2 C L Pulse Rate 69 60 58 L Respiratory Rate 20 18 18 Blood Pressure 103/66 110/54 L 114/59 L Pulse Oximetry 98 95 96 Intake/Output Intake/Output: Intake & Output 05/05/19 05/06/19 05/07/19 05/08/19 23:59 23:59 23:59 23:59 Intake Total 720 840 360 240 Balance 720 840 360 240 Meds/Results Medications: Active Medications Generic Name Dose Route Start Last Admin Trade Name Freq PRN Reason Stop Dose Admin Acetaminophen 650 mg 05/01/19 16:11 05/03/19 08:30 Tylenol Tablet PO 650 mg Q4H PRN Administration Pain (Scale Score 1-3) Apixaban 5 mg 05/01/19 17:00 05/08/19 08:17 Eliquis PO 5 mg BID ARUN Administration Atorvastatin Calcium 40 mg 05/01/19 21:00 05/07/19 20:22 Lipitor PO 40 mg HS ARUN Administration Bupropion HCl 75 mg 05/01/19 21:00 05/08/19 08:17 Wellbutrin PO 75 mg Q12HR ARUN Administration Dextrose 12.5 gm 05/01/19 18:10 Dextrose 50% Syringe IV PUSH PRN PRN Hypoglycemia Protocol Enalapril Maleate 20 mg 05/02/19 09:00 05/08/19 08:17 Vasotec PO 20 mg QAM ARUN Administration Fluoxetine HCl 40 mg 05/02/19 09:00 05/08/19 08:16 Prozac PO 40 mg DAILY ARUN Administration Glipizide 5 mg 05/01/19 16:30 05/08/19 08:16 Glucotrol PO 5 mg BIDAC ARUN Administration Glucagon 1 mg 05/01/19 18:10 Glucagon For Inj IM PRN PRN Hypoglycemia Protocol Glucose 15 gm 05/01/19 18:10 Glutose 15 PO PRN PRN Hypoglycemia Protocol Dextrose 1,000 mls @ 100 mls/hr 05/01/19 18:10 Dextrose 5% 1,000 Ml IVPB PRN PRN Hypoglycemia Protocol Loperamide HCl 2 mg 05/05/19 16:58 05/05/19 18:04 Loperamide Hcl PO 2 mg PRN PRN Administration Diarrhea Metformin HCl 1,000 mg 05/01/19 17:00 05/08/19 08:17 Glucophage PO 1,000 mg BIDWM ARUN Administration Multivitamins/Minerals 1 tab 05/02/19 09:00 05/08/19 08:17 Centrum Silver PO 1 tab QAM ARUN Administration Nifedipine 30 mg 05/02/19 09:00 05/08/19 08:17 Kaur
--- NOTE | 2019-05-08 10:52 | PCOTNOTE ---
Jo Broussard was evaluated for a shower seat with back on 05/08/19 by this occupational therapist. The patient is unable to safely complete bathing in stance due to impaired standing balance, endurance, left weakness and incoordination following CVA. The patient can safely use the shower seat and the shower seat will allow the patient to complete bathing in her home safely.
[2019-05-08 11:45] LABS: Glucose Point of Care 132 (65-105)
[2019-05-08 14:00] VITALS: BP 101/50; PULSE 61; RESP 18; TEMP 36.1; O2SAT 96
[2019-05-08 16:46] LABS: Glucose Point of Care 99 (65-105)
[2019-05-08] MEDS: ATORVASTATIN 40 MG TABLET PO (20:06)
[2019-05-08 20:18] LABS: Glucose Point of Care 109 (65-105)
[2019-05-08 22:00] VITALS: BP 118/56; PULSE 60; RESP 17; TEMP 36.3; O2SAT 97
[2019-05-09 04:49] LABS: Basophils Absolute Auto 0.1 K/mm3 (0.0-0.1); Basophils Percent Auto 0.6 % (0.2-1.2); Eosinophils Absolute Auto 0.3 K/mm3 (0-0.3); Eosinophils Percent Auto 2.4 % (0-4.4); Hematocrit 36.6 % (37.0-47.0); Immature Granulocyte Absolute 0.04 K/mm3 (0.00-0.031); Immature Granulocyte Percent A 0.4 % (0-0.5); Lymphocytes Absolute Auto 3.13 K/mm3 (0.9-3.2); Lymphocytes Percent Auto 30.4 % (18.3-44.2); Mean Corpuscular HGB Conc 32.8 g/dl (32-36); Mean Corpuscular Hemoglobin 29.9 pg (26-34); Mean Platelet Volume 9.4 fl (7.4-10.4); Monocytes Absolute Auto 0.8 K/mm3 (0.1-0.6); Monocytes Percent Auto 7.4 % (2.6-8.5); Neutrophils Absolute Auto 6.1 K/mm3 (1.3-6.7); Neutrophils Percent Auto 58.8 % (45.5-73.1); Platelet Count Result 426 k/mm3 (150-375); Red Blood Count 4.02 M/mm3 (4.2-5.4); Red Cell Distribution Width 13.8 % (11.5-14.5); White Blood Count 10.3 K/mm3 (4.5-10.0)
[2019-05-09 05:02] LABS: Blood Urea Nitrogen 15 mg/dL (7-17); Carbon Dioxide 26 mmol/L (22-30); Chloride 99 mmol/L (98-107); Estimated CRCL calculation 77 ml/min; Estimated Glomerular Filt Rate > 60; Glucose 71 mg/dL (65-105); Potassium 3.8 mmol/L (3.4-5.0); Sodium 133 mmol/L (137-145)
[2019-05-09 06:00] VITALS: BP 133/62; PULSE 59; RESP 18; TEMP 36.2; O2SAT 97
--- NOTE | 2019-05-09 06:25 | PC.NURSE ---
blood sugar 68-offered orange juice and amber crackers
[2019-05-09 06:27] LABS: Glucose Point of Care 68 (65-105)
[2019-05-09] MEDS: metFORMIN HCL 500 MG TABLET 1000 MG PO ×2 (09:43→16:58)
[2019-05-09] MEDS: buPROPion HCL 75 MG TABLET PO ×2 (09:43→20:47)
[2019-05-09] MEDS: APIXABAN 5 MG TABLET PO ×2 (09:43→16:57)
[2019-05-09] MEDS: MULTIVITAMINS /C LUTEIN (CENTRUM SILVER) TABLET *BKC 1 TAB PO (09:43)
[2019-05-09] MEDS: FLUOXETINE HCL 20 MG CAP 40 MG PO (09:43)
[2019-05-09] MEDS: NIFEdipine 30 MG TAB.ER.24 PO (09:44)
[2019-05-09] MEDS: ENALAPRIL MALEATE 10 MG TABLET 20 MG PO (09:44)
[2019-05-09 09:50] VITALS: PULSE 62; RESP 18
--- NOTE | 2019-05-09 12:21 | WPDNEURORHBP ---
Subjective Date/time seen: 05/09/19 12:21 Interval history: this 59-year-old woman is here post is stroke/ post tPA/post right middle cerebral artery thrombectomy and she is on Eliquis as per recommendation by the referring hospital for the prevention of any further thrombosis because it was evident even post tPA. Patient is doing fairly well moving forward engage in therapy and left-sided hemiparesis is improving. Patient denies any headache nausea vomiting chest pain shortness of breath but does not recall the sequence of events which is expected and she went through all these procedures in transfer from [place] were noted on to [facility] Review of Systems Review of Systems: All systems reviewed & are unremarkable except as noted in HPI and below Functional Status Ambulation Ability Ability to Ambulate 10 Feet: Independent Ability to Ambulate 50 Feet With 2 Turns: Independent Ability to Ambulate 150 Feet: Standby Assistance Ambulation Assistive Devices: Walker, Wheeled Transfers Ability Ability to Transfer In/Out of Chair: Standby Assistance Exam Const: General: comfortable and no acute distress HENMT: General nose exam: Normal nares present Mouth: Yes moist mucous membranes Eyes: General: appearance normal, both eyes and all related structures Neck: Neck: supple and no JVD Resp: Effort & Inspection: normal respiratory effort Auscultation: clear to auscultation bilaterally Cardio: Rate: regular rate Rhythm: regular rhythm GI: GI Palp: Yes Soft to palpation Auscultation: normal bowel sounds Skin: General skin exam: normal color and no rashes or lesions noted Neuro: Other: patient is awake alert and well oriented time place and person her memory for the sequence of events happening from the time she double of the stroke and went through the procedures of tPA and thrombectomy is quite foggy and she does not recall what exactly she was told however otherwise she is doing fairly well on the left side is hemiparesis improving engage in therapy and happy with the care Extrem: General: normal to inspection Psych: Mental Status: mental status grossly normal Objective Data Vital Signs Vital Signs: Vital Signs - 24 hr 05/08/19 14:00 05/08/19 22:00 05/09/19 06:00 Temperature 36.1 C L 36.3 C L 36.2 C L Pulse Rate 61 60 59 L Respiratory Rate 18 17 18 Blood Pressure 101/50 L 118/56 L 133/62 Pulse Oximetry 96 97 97 05/09/19 09:50 Temperature Pulse Rate 62 Respiratory Rate 18 Blood Pressure Pulse Oximetry Intake/Output Intake/Output: Intake & Output 05/06/19 05/07/19 05/08/19 05/09/19 23:59 23:59 23:59 23:59 Intake Total 840 360 720 240 Balance 840 360 720 240 Meds/Results Medications: Active Medications Generic Name Dose Route Start Last Admin Trade Name Freq PRN Reason Stop Dose Admin Acetaminophen 650 mg 05/01/19 16:11 05/03/19 08:30 Tylenol Tablet PO 650 mg Q4H PRN Administration Pain (Scale Score 1-3) Apixaban 5 mg 05/01/19 17:00 05/09/19 09:43 Eliquis PO 5 mg BID ARUN Administration Atorvastatin Calcium 40 mg 05/01/19 21:00 05/08/19 20:06 Lipitor PO 40 mg HS ARUN Administration Bupropion HCl 75 mg 05/01/19 21:00 05/09/19 09:43 Wellbutrin PO 75 mg Q12HR ARUN Administration Dextrose 12.5 gm 05/01/19 18:10 Dextrose 50% Syringe IV PUSH PRN PRN Hypoglycemia Protocol Enalapril Maleate 20 mg 05/02/19 09:00 05/09/19 09:44 Vasotec PO 20 mg QAM ARUN Administration Fluoxetine HCl 40 mg 05/02/19 09:00 05/09/19 09:43 Prozac PO 40 mg DAILY ARUN Administration Glipizide 5 mg 05/01/19 16:30 05/09/19 06:30 Glucotrol PO Not Given BIDAC ARUN Glucagon 1 mg 05/01/19 18:10 Glucagon For Inj IM PRN PRN Hypoglycemia Protocol Glucose 15 gm 05/01/19 18:10 Glutose 15 PO PRN PRN Hypoglycemia Protocol Dextrose 1,000 mls @ 100 mls/hr 05/01/19 18:10 Dextro
[2019-05-09 14:00] VITALS: BP 112/58; PULSE 63; RESP 18; TEMP 36.5; O2SAT 97
[2019-05-09] MEDS: glipiZIDE 5 MG TABLET PO (16:57)
[2019-05-09 17:35] LABS: Glucose Point of Care 102 (65-105)
[2019-05-09] MEDS: ATORVASTATIN 40 MG TABLET PO (20:48)
[2019-05-09 20:57] LABS: Glucose Point of Care 59 (65-105)
[2019-05-09 20:57] LABS: Glucose Point of Care 57 (65-105)
[2019-05-09 21:12] VITALS: PULSE 62; O2SAT 96
[2019-05-09 21:45] VITALS: BP 121/47; PULSE 58; RESP 16; TEMP 36.2; O2SAT 96
[2019-05-09 21:57] LABS: Glucose Point of Care 80 (65-105)
[2019-05-09 21:57] LABS: Glucose Point of Care 56 (65-105)
--- NOTE | 2019-05-09 21:57 | PC.NURSE ---
blood sugar-80 after eating amber crackers, pudding and drinking orange juice; blood sugar was 57/59 at 2049.
[2019-05-10 06:00] VITALS: BP 133/77; PULSE 63; RESP 20; TEMP 36.4; O2SAT 98
[2019-05-10 06:04] LABS: Glucose Point of Care 87 (65-105)
[2019-05-10] MEDS: MULTIVITAMINS /C LUTEIN (CENTRUM SILVER) TABLET *BKC 1 TAB PO (08:45)
[2019-05-10] MEDS: ENALAPRIL MALEATE 10 MG TABLET 20 MG PO (08:45)
[2019-05-10] MEDS: NIFEdipine 30 MG TAB.ER.24 PO (08:45)
[2019-05-10] MEDS: buPROPion HCL 75 MG TABLET PO ×2 (08:46→20:07)
[2019-05-10] MEDS: metFORMIN HCL 500 MG TABLET 1000 MG PO (08:46)
[2019-05-10] MEDS: FLUOXETINE HCL 20 MG CAP 40 MG PO (08:46)
[2019-05-10] MEDS: APIXABAN 5 MG TABLET PO ×2 (08:46→17:04)
--- NOTE | 2019-05-10 11:30 | WPDNEURORHBP ---
Subjective Date/time seen: 05/10/19 11:30 Interval history: this is a 59-year-old woman who is recuperating care of the acute rehab floor after having a stroke with left-sided hemiparesis she is diabetic and has been running relatively low sugar and have to adjust her medications today on the other and she is relatively asymptomatic denies any fever chills sweats sore throat fever nausea vomiting abdominal pain or chest discomfort Review of Systems Review of Systems: All systems reviewed & are unremarkable except as noted in HPI and below Functional Status Ambulation Ability Ability to Ambulate 10 Feet: Independent Ability to Ambulate 50 Feet With 2 Turns: Independent Ability to Ambulate 150 Feet: Standby Assistance Ambulation Assistive Devices: Walker, Wheeled Transfers Ability Ability to Transfer In/Out of Chair: Standby Assistance Exam Const: General: comfortable and no acute distress HENMT: General nose exam: Normal nares present Mouth: Yes moist mucous membranes Eyes: General: appearance normal, both eyes and all related structures Neck: Neck: supple and no JVD Resp: Effort & Inspection: normal respiratory effort Auscultation: clear to auscultation bilaterally Cardio: Rate: regular rate Rhythm: regular rhythm GI: GI Palp: Yes Soft to palpation Auscultation: normal bowel sounds Skin: General skin exam: normal color and no rashes or lesions noted Neuro: Other: patient is awake alert upper anti time place person has normal speech and language function normal cranial examination except mild subtle left-sided facial weakness and mild left-sided hemiparesis from a she is improving Extrem: General: normal to inspection Psych: Mental Status: mental status grossly normal Objective Data Vital Signs Vital Signs: Vital Signs - 24 hr 05/09/19 14:00 05/09/19 21:12 05/09/19 21:45 Temperature 36.5 C 36.2 C L Pulse Rate 63 62 58 L Respiratory Rate 18 16 Blood Pressure 112/58 L 121/47 L Pulse Oximetry 97 96 96 05/10/19 06:00 Temperature 36.4 C Pulse Rate 63 Respiratory Rate 20 Blood Pressure 133/77 Pulse Oximetry 98 Intake/Output Intake/Output: Intake & Output 05/07/19 05/08/19 05/09/19 05/10/19 23:59 23:59 23:59 23:59 Intake Total 360 720 720 240 Balance 360 720 720 240 Meds/Results Medications: Active Medications Generic Name Dose Route Start Last Admin Trade Name Freq PRN Reason Stop Dose Admin Acetaminophen 650 mg 05/01/19 16:11 05/03/19 08:30 Tylenol Tablet PO 650 mg Q4H PRN Administration Pain (Scale Score 1-3) Apixaban 5 mg 05/01/19 17:00 05/10/19 08:46 Eliquis PO 5 mg BID ARUN Administration Atorvastatin Calcium 40 mg 05/01/19 21:00 05/09/19 20:48 Lipitor PO 40 mg HS ARUN Administration Bupropion HCl 75 mg 05/01/19 21:00 05/10/19 08:46 Wellbutrin PO 75 mg Q12HR ARUN Administration Dextrose 12.5 gm 05/01/19 18:10 Dextrose 50% Syringe IV PUSH PRN PRN Hypoglycemia Protocol Enalapril Maleate 20 mg 05/02/19 09:00 05/10/19 08:45 Vasotec PO 20 mg QAM ARUN Administration Fluoxetine HCl 40 mg 05/02/19 09:00 05/10/19 08:46 Prozac PO 40 mg DAILY ARUN Administration Glipizide 5 mg 05/01/19 16:30 05/10/19 06:03 Glucotrol PO Not Given BIDAC ARUN Glucagon 1 mg 05/01/19 18:10 Glucagon For Inj IM PRN PRN Hypoglycemia Protocol Glucose 15 gm 05/01/19 18:10 Glutose 15 PO PRN PRN Hypoglycemia Protocol Dextrose 1,000 mls @ 100 mls/hr 05/01/19 18:10 Dextrose 5% 1,000 Ml IVPB PRN PRN Hypoglycemia Protocol Loperamide HCl 2 mg 05/05/19 16:58 05/05/19 18:04 Loperamide Hcl PO 2 mg PRN PRN Administration Diarrhea Metformin HCl 500 mg 05/10/19 17:00 Glucophage PO BIDWM ARUN Multivitamins/Minerals 1 tab 05/02/19 09:00 05/10/19 08:45 Centrum Silver PO 1 tab QAM ARUN Administration Nifedipine
[2019-05-10 11:59] LABS: Glucose Point of Care 136 (65-105)
[2019-05-10 14:00] VITALS: BP 113/48; PULSE 68; RESP 18; TEMP 36.6; O2SAT 99
[2019-05-10 16:44] LABS: Glucose Point of Care 99 (65-105)
[2019-05-10 17:00] VITALS: PULSE 66; RESP 18
[2019-05-10] MEDS: metFORMIN HCL 500 MG TABLET PO (17:04)
[2019-05-10] MEDS: glipiZIDE 5 MG TABLET PO (17:04)
[2019-05-10] MEDS: ATORVASTATIN 40 MG TABLET PO (20:07)
[2019-05-10 20:08] LABS: Glucose Point of Care 129 (65-105)
[2019-05-10 21:50] VITALS: PULSE 60; O2SAT 96
[2019-05-10 22:00] VITALS: BP 108/67; PULSE 60; RESP 18; TEMP 36.6; O2SAT 96
[2019-05-11] MEDS: glipiZIDE 5 MG TABLET PO ×2 (05:47→16:36)
[2019-05-11 05:49] LABS: Glucose Point of Care 75 (65-105)
[2019-05-11 06:00] VITALS: BP 130/74; PULSE 69; RESP 19; TEMP 36.4; O2SAT 98
[2019-05-11] MEDS: NIFEdipine 30 MG TAB.ER.24 PO (08:28)
[2019-05-11] MEDS: metFORMIN HCL 500 MG TABLET PO ×2 (08:28→16:36)
[2019-05-11] MEDS: ENALAPRIL MALEATE 10 MG TABLET 20 MG PO (08:28)
[2019-05-11] MEDS: FLUOXETINE HCL 20 MG CAP 40 MG PO (08:28)
[2019-05-11] MEDS: buPROPion HCL 75 MG TABLET PO ×2 (08:29→20:51)
[2019-05-11] MEDS: MULTIVITAMINS /C LUTEIN (CENTRUM SILVER) TABLET *BKC 1 TAB PO (08:29)
[2019-05-11] MEDS: APIXABAN 5 MG TABLET PO ×2 (08:29→16:36)
[2019-05-11 11:33] LABS: Glucose Point of Care 121 (65-105)
--- NOTE | 2019-05-11 13:00 | PCDIET ---
Nutrition Follow-Up Complete: Nutrition Diagnosis: Decreased saturated fat/cholesterol needs related to cardiovascular disease as evidenced by CVA. Nutrition Goal: Patient to consume 75% of meals or greater Goal met. Patient consuming 75-100% of most meals on diabetic diet. Patient taking Glucerna 1x daily, as well. Plan for discharge over weekend. Patient has diet information and denies questions at this time. Last recorded weight is 100 kg. Recommend obtaining new weight. Bowel Motility: +BM on 05/10/19. Labs Reviewed: Glu (121) Meds Noted: Glucotrol, Glucophage, Januvia, Centrum Silver Additional Notes: No documented skin breakdown. Will continue to monitor with same goals if patient remains in house. Nutrition Monitoring and Evaluation: Follow up in 7 days.
--- NOTE | 2019-05-11 13:22 | WPDNEURORHBP ---
Subjective Date/time seen: 05/11/19 13:22 Interval history: this 59-year-old woman was here after having an stroke she has done remarkably well and left-sided hemiparesis is improved and she is going to be going home tomorrow with outpatient PT and OT she denies any headache nausea vomiting chest pain shortness of breath Review of Systems Review of Systems: All systems reviewed & are unremarkable except as noted in HPI and below Functional Status Ambulation Ability Ability to Ambulate 10 Feet: Independent Ability to Ambulate 50 Feet With 2 Turns: Independent Ability to Ambulate 150 Feet: Independent Ambulation Assistive Devices: Walker, Wheeled Transfers Ability Ability to Transfer In/Out of Chair: Standby Assistance Exam Const: General: comfortable and no acute distress HENMT: General nose exam: Normal nares present Mouth: Yes moist mucous membranes Eyes: General: appearance normal, both eyes and all related structures Neck: Neck: supple and no JVD Resp: Effort & Inspection: normal respiratory effort Auscultation: clear to auscultation bilaterally Cardio: Rate: regular rate Rhythm: regular rhythm GI: GI Palp: Yes Soft to palpation Auscultation: normal bowel sounds Skin: General skin exam: normal color and no rashes or lesions noted Neuro: Other: patient real-time present person is speech and language functions are normal cranial examination normal left-sided hemiparesis has sign Psych: Mental Status: mental status grossly normal Objective Data Vital Signs Vital Signs: Vital Signs - 24 hr 05/10/19 14:00 05/10/19 17:00 05/10/19 21:50 Temperature 36.6 C Pulse Rate 68 66 60 Respiratory Rate 18 18 Blood Pressure 113/48 L Pulse Oximetry 99 96 05/10/19 22:00 05/11/19 06:00 Temperature 36.6 C 36.4 C Pulse Rate 60 69 Respiratory Rate 18 19 Blood Pressure 108/67 130/74 Pulse Oximetry 96 98 Intake/Output Intake/Output: Intake & Output 05/08/19 05/09/19 05/10/19 05/11/19 23:59 23:59 23:59 23:59 Intake Total 720 720 720 480 Balance 720 720 720 480 Meds/Results Medications: Active Medications Generic Name Dose Route Start Last Admin Trade Name Freq PRN Reason Stop Dose Admin Acetaminophen 650 mg 05/01/19 16:11 05/03/19 08:30 Tylenol Tablet PO 650 mg Q4H PRN Administration Pain (Scale Score 1-3) Apixaban 5 mg 05/01/19 17:00 05/11/19 08:29 Eliquis PO 5 mg BID ARUN Administration Atorvastatin Calcium 40 mg 05/01/19 21:00 05/10/19 20:07 Lipitor PO 40 mg HS ARUN Administration Bupropion HCl 75 mg 05/01/19 21:00 05/11/19 08:29 Wellbutrin PO 75 mg Q12HR ARUN Administration Dextrose 12.5 gm 05/01/19 18:10 Dextrose 50% Syringe IV PUSH PRN PRN Hypoglycemia Protocol Enalapril Maleate 20 mg 05/02/19 09:00 05/11/19 08:28 Vasotec PO 20 mg QAM ARUN Administration Fluoxetine HCl 40 mg 05/02/19 09:00 05/11/19 08:28 Prozac PO 40 mg DAILY ARUN Administration Glipizide 5 mg 05/01/19 16:30 05/11/19 05:47 Glucotrol PO 5 mg BIDAC ARUN Administration Glucagon 1 mg 05/01/19 18:10 Glucagon For Inj IM PRN PRN Hypoglycemia Protocol Glucose 15 gm 05/01/19 18:10 Glutose 15 PO PRN PRN Hypoglycemia Protocol Dextrose 1,000 mls @ 100 mls/hr 05/01/19 18:10 Dextrose 5% 1,000 Ml IVPB PRN PRN Hypoglycemia Protocol Loperamide HCl 2 mg 05/05/19 16:58 05/05/19 18:04 Loperamide Hcl PO 2 mg PRN PRN Administration Diarrhea Metformin HCl 500 mg 05/10/19 17:00 05/11/19 08:28 Glucophage PO 500 mg BIDWM ARUN Administration Multivitamins/Minerals 1 tab 05/02/19 09:00 05/11/19 08:29 Centrum Silver PO 1 tab QAM ARUN Administration Nifedipine 30 mg 05/02/19 09:00 05/11/19 08:28 Procardia Xl PO 30 mg DAILY ARUN Administration Sitagliptin Phosphate 100 mg 05/02/19 08:00 05/11/19 08:29 Januvia PO 1
[2019-05-11 14:00] VITALS: BP 123/64; PULSE 78; RESP 18; TEMP 36.2; O2SAT 98
[2019-05-11 16:42] LABS: Glucose Point of Care 131 (65-105)
[2019-05-11 20:24] LABS: Glucose Point of Care 104 (65-105)
[2019-05-11] MEDS: ATORVASTATIN 40 MG TABLET PO (20:51)
[2019-05-11 22:00] VITALS: BP 110/69; PULSE 57; RESP 16; TEMP 36.9; O2SAT 96
[2019-05-12 06:00] VITALS: BP 151/96; PULSE 61; RESP 16; TEMP 36.4; O2SAT 100
[2019-05-12] MEDS: glipiZIDE 5 MG TABLET PO (06:55)
[2019-05-12 07:00] LABS: Glucose Point of Care 112 (65-105)
[2019-05-12] MEDS: APIXABAN 5 MG TABLET PO (08:26)
[2019-05-12] MEDS: buPROPion HCL 75 MG TABLET PO (08:26)
[2019-05-12] MEDS: metFORMIN HCL 500 MG TABLET PO (08:26)
[2019-05-12] MEDS: FLUOXETINE HCL 20 MG CAP 40 MG PO (08:26)
[2019-05-12] MEDS: MULTIVITAMINS /C LUTEIN (CENTRUM SILVER) TABLET *BKC 1 TAB PO (08:26)
[2019-05-12] MEDS: ENALAPRIL MALEATE 10 MG TABLET 20 MG PO (08:26)
[2019-05-12] MEDS: NIFEdipine 30 MG TAB.ER.24 PO (08:27)
--- NOTE | 2019-05-17 11:19 | PM.DS ---
DS: Diagnosis Admitting Diagnosis Admitting Diagnosis: Cerebral infarction due to unspecified occlusion or stenosis of right middle cerebral artery Discharge Diagnosis (1) Hyperlipidemia: Code(s): E78.5 - Hyperlipidemia, unspecified Status: Acute (2) Obstructive sleep apnea: Code(s): G47.33 - Obstructive sleep apnea (adult) (pediatric) Status: Acute (3) Hypertension: Code(s): I10 - Essential (primary) hypertension Status: Acute (4) Coronary artery disease: Code(s): I25.10 - Atherosclerotic heart disease of solomon coronary artery without angina pectoris Status: Acute (5) Diabetes mellitus: Code(s): E11.9 - Type 2 diabetes mellitus without complications Status: Acute (6) Left hemiparesis: Code(s): G81.94 - Hemiplegia, unspecified affecting left nondominant side Status: Acute (7) Stroke: Code(s): I63.9 - Cerebral infarction, unspecified Status: Acute DS: Summary Hospital Course Reason for hospitalization: for this 51-year-old right-handed woman was admitted because of acute ischemic right middle cerebral artery stroke related to will serve early artery occlusion which was treated initially with the tPA followed by thrombectomy and the details are available in my initial history and physical examination the initial treatment was done at the [facility] in [place] Patient does have a past medical history of coronary artery disease depression hypertension heart disease 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 myocardial infarct obstructive sleep apnea hyperlipidemia type 2 diabetes mellitus Hospital Course: patient was admitted to the acute rehab and see the physical therapy occupational therapy and gait training and the treatment for her underlying medical issues and was able to achieved the following independent measures eating was independent oral hygiene was independent toileting was independent breathing was set up upper body dressing was independent a lower body dressing was independent footwear was independent rolling in bed independent sitting to lying independent lying to sitting independent sit to stand independent chair transfers independent trial a transfers independent car transfers independent walking 10 feet independent walking 50 feet with 2 turns independent walking 150 feet independent walking 10 feet uneven surfaces supervision [place] step supervision 4 step supervision 12 step supervision picking about checked independent wheelchair 50 feet not applicable wheelchair 150 feet not applicable patient was sent home a without patient PT and OT no falls were recorded Time Spent with Patient Time attestation: Total time spent providing and/or coordinating discharge services: Exam Const: General: comfortable and no acute distress HENMT: General nose exam: Normal nares present Mouth: Yes moist mucous membranes Eyes: General: appearance normal, both eyes and all related structures Neck: Neck: supple and no JVD Resp: Effort & Inspection: normal respiratory effort Auscultation: clear to auscultation bilaterally Cardio: Rate: regular rate Rhythm: regular rhythm GI: GI Palp: Yes Soft to palpation Auscultation: normal bowel sounds Skin: General skin exam: normal color and no rashes or lesions noted Neuro: Other: patient remains awake alert well oriented in time place and person with normal is tension speech and language function decent cranial examination and significantly improved left-sided hemiparesis Extrem: General: normal to inspection Psych: Mental Status: mental status grossly normal DS: Data Data Completed and Pending Completed studies during hospitalization: patient's lab work summary was as follows on May 09, 2019 [place] [id number] hemoglobin was 12 hematocrit 36.6 and a platelet count of [id number] the diabetic status was fairly well controlled The BMP performed the same day as CBC reveals sodium of 133 [address]
== END 2019-05-12 11:30 | disposition home or self-care (01) | DRG 57 ==
PROVIDERS: Admitting Provider Psychiatry & Neurology Neurology; Visit Provider Psychiatry & Neurology Neurology
DX: I69.354 Hemiplegia and hemiparesis following cerebral infarction affecting left non-dominant side (principal); I69.392 Facial weakness following cerebral infarction; I69.322 Dysarthria following cerebral infarction; I69.398 Other sequelae of cerebral infarction; I69.320 Aphasia following cerebral infarction; E11.9 Type 2 diabetes mellitus without complications; E78.5 Hyperlipidemia, unspecified; F17.210 Nicotine dependence, cigarettes, uncomplicated; G47.33 Obstructive sleep apnea (adult) (pediatric); H51.8 Other specified disorders of binocular movement; I10 Essential (primary) hypertension; I25.10 Atherosclerotic heart disease of native coronary artery without angina pectoris; I25.2 Old myocardial infarction; Z79.84 Long term (current) use of oral hypoglycemic drugs; Z86.14 Personal history of Methicillin resistant Staphylococcus aureus infection; Z79.01 Long term (current) use of anticoagulants
CPT/HCPCS: 36415; 80048; 80061; 83036; 85025; 92611; 96125; 97110; 97112; 97116; 97161; 97167; 97530; 97535; 97542; A9270